=== PATIENT | male | born 1935 | race Caucasian/White ===

== ENCOUNTER 2017-09-19 22:21 | Emergency (ER) | payer MEDICARE ==
[~2017-09-19] VITALS: Ht 170.2 cm; Wt 95.5 kg
[2017-09-19] MEDS ORDERED: cephalexin 500mg capsule PO ONE (22:50)
[2017-09-19 23:00] LABS: CLARITY,URINE Turbid (Clear); COLOR,URINE Yellow (Yellow); GLUCOSE, URINE Negative (Neg); KETONES,URINE Negative (Neg); LEUKOCYTE ESTERASE ,URINE Large (Neg); NITRITES, URINE Negative (Neg); OCCULT BLOOD,URINE Large (Neg); PH,URINE 7.5 (4.8-8.0); PROTEIN,URINE 300 mg/dl (Neg)
[2017-09-19] MEDS ORDERED: CEPH500C5 PO (23:03)
[2017-09-19 23:10] LABS: UA COLLECTION TYPE OTHER
[2017-09-19 23:11] LABS: AMORPHOUS PHOSPHATES 3+; BACTERIA,URINE FEW /HPF (Neg); RBC,URINE 20-50 /HPF (0-2); SQUAMOUS EPITHELIAL CELL,UR FEW /LPF (FEW); WBC,URINE 20-30 /HPF (0-4)
[2017-09-19 23:15] VITALS: BP 141/69
== END 2017-09-19 23:18 | disposition home or self-care (01) ==
LOC: ER 22:21
DX: T83.098A Other mechanical complication of other urinary catheter, initial encounter (principal); I10 Essential (primary) hypertension; E11.42 Type 2 diabetes mellitus with diabetic polyneuropathy; E03.9 Hypothyroidism, unspecified; Z85.46 Personal history of malignant neoplasm of prostate; Z88.5 Allergy status to narcotic agent; Z79.899 Other long term (current) drug therapy
CPT/HCPCS: 51702; 81001; 87077; 87088; 87186; 99284; A4344; A6449